=== PATIENT | female | born 1950 | race Caucasian/White ===

== ENCOUNTER → 2021-01-10 09:54 | Outpatient (CLI) | payer MEDICARE, OTHER, SELFPAY ==
--- NOTE | ~2021-01-10 | CT_ITS ---
EXAMINATION: CT diagnostic chest w con EXAM DATE: 01/10/2021 10:22 INDICATION: Pulmonary nodule. Adult onset asthma. TECHNIQUE: Spiral CT of the chest following intravenous injection of 75 mL Omnipaque 350. Axial, cor onal and sagittal images of the chest were reviewed. Coronal maximum intensity pixel images of chest reviewed. The dose-length product (DLP) for this examination was 243.83 mGy-cm. The exposure was t ailored according to patient size (auto mA exposure control), and iterative reconstruction (ASIR) was used as additional dose reduction technique. There is no prior study for comparison. FINDINGS: There is a 4 mm nodule in the left lower lobe axial image 81. 2.5 mm nodule in the left lo wer lobe on image 93. If the patient has no known risk factors for lung cancer, then no routine follo wup currently recommended for nodules <6 mm ([facility] Guidelines 2017). If the patient is high risk (i.e., history of smoking or asbestos, uranium, or radon exposure), comparison with prior examinatio n could be made if available. Otherwise optional follow-up low dose noncontrast chest CT at 12 month s can be considered. Several smaller punctate nodules bilaterally. Mild emphysema. There are no pleural or pericardial ef fusions. Tracheobronchial tree is patent. There is no mediastinal, hilar or axillary lymphadenopa thy. There is no pneumothorax. Heart normal in size. There is mild coronary arterial calcificat ion, arterial sclerosis. There are cholecystectomy clips. There is mild thoracic spondylosis withou t osteoblastic or osteolytic lesions identified. IMPRESSION: 1. Several small nodules likely granulomas. Optional 1 year follow-up chest CT. 2. Mild emphysema. Reviewed, dictated and finalized at location A. IMPRESSION: 1. Several small nodules likely granulomas. Optional 1 year follow-up chest CT . 2. Mild emphysema.
[2021-01-10 10:11] LABS: Estimated Glomerular Filt Rate 55
== END ==
DX: R91.1 Solitary pulmonary nodule (principal); J43.9 Emphysema, unspecified
CPT/HCPCS: 71260; Q9967